=== PATIENT | male | born 1975 ===

== ENCOUNTER → 2017-06-01 11:31 | Outpatient (CLI) | payer SELFPAY ==
[2017-06-02 08:58] LABS: M R Staph aureus DNA By PCR Negative (Negative); Probe Check PASS; Specimen Processing Control PASS; Staph aureus DNA By PCR POSITIVE (Negative)
[2017-06-08 20:31] LABS: M R Staph aureus DNA By PCR Negative (Negative); Probe Check PASS; Specimen Processing Control PASS; Staph aureus DNA By PCR NEGATIVE (Negative)
[2017-06-08 22:38] LABS: M R Staph aureus DNA By PCR POSITIVE (Negative); Probe Check PASS
[2017-06-09 14:55] LABS: M R Staph aureus DNA By PCR Negative (Negative); Probe Check PASS; Specimen Processing Control PASS
[2017-06-11 12:24] LABS: M R Staph aureus DNA By PCR Negative (Negative); Probe Check PASS; Specimen Processing Control PASS
== END ==
PROVIDERS: Visit Provider Pathology Anatomic Pathology & Clinical Pathology
DX: Z00.00 Encounter for general adult medical examination without abnormal findings (principal)
CPT/HCPCS: 86235